=== PATIENT | female | born 1955 | race Caucasian/White ===

== ENCOUNTER 2022-10-16 22:59 | Emergency (ER) | payer MEDICARE, BC ==
[~2022-10-16] VITALS: Ht 165.1 cm; Wt 61.2 kg
[2022-10-16 23:07] VITALS: BP 149/71
[2022-10-16] MEDS ORDERED: APRISO0.375 GM PO (23:30)
[2022-10-16] MEDS ORDERED: AZAT50 PO (23:30)
[2022-10-16] MEDS ORDERED: ROSU10TA PO (23:31)
== END 2022-10-16 23:46 | disposition home or self-care (01) ==
LOC: ER 22:59
DX: S01.01XA Laceration without foreign body of scalp, initial encounter (principal); W01.10XA Fall on same level from slipping, tripping and stumbling with subsequent striking against unspecified object, initial encounter; Z91.013 Allergy to seafood
CPT/HCPCS: 90714